=== PATIENT | male | born 1935 | race Caucasian/White ===

== ENCOUNTER → 2022-01-30 14:33 | Outpatient (BNVA) | payer MEDICARE, SELFPAY | PROVIDERS: Family Provider Internal Medicine; PCP Internal Medicine; Visit Provider Family Medicine | DX: Z20.822 Contact with and (suspected) exposure to COVID-19 (principal) | CPT/HCPCS: 87426 ==

== ENCOUNTER 2022-07-25 11:58 | Emergency (ER) | payer MEDICARE, SELFPAY ==
[2022-07-25 11:58] VITALS: BP 100/59; PULSE 62; RESP 16; TEMP 36.4; O2SAT 96; BMI 21.9
--- NOTE | 2022-07-25 11:58 | W.ED.SYNCOPE ---
HPI - Syncope General: Chief Complaint: Syncope Stated Complaint: SYNCOPE Time Seen by Provider: 07/25/22 11:58 History of Present Illness: Mr. John is an 86-year-old gentleman without significant past medical history presenting to the emergency department due to syncopal episode. Reports being at his baseline health the past few days and feeling well this morning. He was sitting in [place] when he describes his vision closing in and syncope. He recalls is waking up on the ground. He currently feels back to baseline. Denies chest pain or shortness of breath. He denies any numbness or tingling or neurologic symptoms. Denies frequent episodes in the past. Intensity symptoms when present was severe. Course has resolved. No other specific changes in health, exacerbating, or alleviating factors identified. Onset (ago): minute(s) Duration of episode: 3 -: minutes(s) Prodromal symptoms: vision changes Witnessed: Yes - by Bystander Context: at rest Injuries sustained associated with event: none Associated symptoms: Reports no associated symptoms Review of Systems General: Reports: 10 or more systems reviewed and unremarkable except in HPI and below PFSH ED PFSH: Medical History GERD (gastroesophageal reflux disease) Lower urinary tract symptoms (LUTS) Thyroid disorder Surgical History No significant past surgical history Physical Exam Const: COMMON NORMALS: patient oriented x3 and alert GENERAL APPEARANCE: cooperative and well developed HENMT: COMMON NORMALS: normocephalic and atraumatic HEAD & SCALP: normocephalic and atraumatic Eye: COMMON NORMALS: conjunctivae normal CONJUNCTIVA: Yes conjunctivae normal SCLERA: sclerae normal Neck/C-Spine: COMMON NORMALS: supple GENERAL: Yes trachea midline Resp: COMMON NORMALS: clear to auscultation bilaterally EFFORT & INSPECTION: Yes able to speak in complete sentences AUSCULTATION: clear to auscultation bilaterally Cardio: COMMON NORMALS: regular rate and regular rhythm RATE: regular rate RHYTHM: regular rhythm GI: COMMON NORMALS: Soft to palpation PALPATION: Yes Soft to palpation and No Tenderness to palpation present (GI) Extremity: GENERAL: Yes normal exam except as noted and No edema Neuro: COMMON NORMALS: patient oriented x3, CN's II-XII intact bilaterally, moves all extremities, no focal motor deficits and no sensory deficits noted SENSORIUM/ORIENTATION: Yes alert and No Orientation impaired Psych: COMMON NORMALS: mental status grossly normal and Normal thought process present THOUGHT PROCESS: Normal thought process present Course Vital Signs: Vital signs: Vital Signs Temperature 97.6 F 07/25/22 11:58 Pulse Rate 67 07/25/22 12:21 Respiratory Rate 14 07/25/22 12:21 Blood Pressure 159/90 07/25/22 13:59 Pulse Oximetry 97 07/25/22 12:21 Oxygen Delivery Me thod 07/25/22 12:21 MDM - Syncope Medical Decision Making 86-year-old gentleman presenting due to a syncopal episode that occurred while at [place]. Patient currently feels back to baseline and there are no focal neurologic deficits. Patient is nontoxic in appearance. Head to toe exam performed. EKG notable for sinus rhythm, left axis deviation, normal intervals, no STEMI. Labs with no significant hematologic abnormalities, metabolic panel with perhaps mild dehydration. Elevated bilirubin of uncertain etiology, patient does not have jaundice and no right upper quadrant tenderness or other abnormalities of liver function. Negative range delta troponin at 2 hours. Elevated TSH with normal free T4. No evidence of urinary tract infection. Chest x-ray negative for acute lobar consolidation or pneumothorax, heart is mildly enlarged. CT head negative for acute pathology. On reassessment patient continues to feel improved without recurrence of symptoms. He is able to ambulate with a steady gait. He was treated during ED management with IV fluids. Most likely etiology of patient symptoms is syncope which may be related to dehydration. The results of ED evaluation were discussed with the patient including potential disposition options. The patient is not low risk by syncope rules and this was discussed with end. He prefers outpatient management which I think is reasonable given age. I will order further outpatient testing. I discussed prescriptions and/or symptomatic cares (if applicable) including appropriate and responsible use, followup plan, and return precautions. The patient verbalized understanding and felt safe for discharge. Medical Records I reviewed the patient's medical records. Lab Data I reviewed the patient's lab results. 07/25/22 12:00 07/25/22 12:00 Radiology Impressions Chest X-Ray 07/25/22 12:14 IMPRESSION: Cardiomegaly with moderate elevation left hemidiaphragm. Head CT 07/25/22 12:14 IMPRESSION: No acute intracranial abnormality. Laboratory Results WBC 7.5 10^3/uL (4.0-10.0) 07/25/22 12:00 RBC 5.12 10^6/uL (4.1-5.3) 07/25/22 12:00 Hgb 15.0 g/dL (11.7-16.6) 07/25/22 12:00 Hct 47.5 % (42.0-52.0) 07/25/22 12:00 MCV 92.8 fl (80-94) 07/25/22 12:00 MCH 29.3 pg (28.0-34.0) 07/25/22 12:00 MCHC 31.6 g/dL (30.0-36.0) 07/25/22 12:00 RDW 12.7 % (12.1-15.1) 07/25/22 12:00 Plt Count 182 10^3/cmm (130-400) 07/25/22 12:00 MPV 11.5 fL (7.4-10.4) H 07/25/22 12:00 Neut % (Auto) 67.5 % 07/25/22 12:00 Lymph % (Auto) 18.0 % 07/25/22 12:00 [place] % (Auto) 10.2 % 07/25/22 12:00 Eos % (Auto) 2.7 % 07/25/22 12:00 Baso % (Auto) 0.9 % 07/25/22 12:00 Neut # (Auto) 5.08 10^3/uL (1.8-7.7) 07/25/22 12:00 Lymph # (Auto) 1.4 10^3/uL (0.8-4.8) 07/25/22 12:00 [place] # (Auto) 0.8 10^3/uL (0.2-0.9) 07/25/22 12:00 Eos # (Auto) 0.2 10^3/uL (0.0-0.8) 07/25/22 12:00 Baso # (Auto) 0.1 10^3/uL (0.0-0.1) 07/25/22 12:00 Nucleated RBC % (auto) 0 % 07/25/22 12:00 Nucleated RBCs # 0.0 /100WBC 07/25/22 12:00 Sodium 134 mmol/L (136-145) L 07/25/22 12:00 Potassium 4.3 mmol/L (3.5-5.1) 07/25/22 12:00 Chloride 100 mmol/L (98-107) 07/25/22 12:00 Carbon Dioxide 25 mmol/L (22-29) 07/25/22 12:00 Anion Gap 13.3 (5-19) 07/25/22 12:00 BUN 20 mg/dL (8-23) 07/25/22 12:00 Creatinine 0.8 mg/dL (0.7-1.2) 07/25/22 12:00 GFR Calculation Not Reportable 07/25/22 12:00 Glucose 105 mg/dL (65-115) 07/25/22 12:00 Calculated Osmolality 281 mOsm/kg (285-295) L 07/25/22 12:00 Calcium 9.0 mg/dL (8.5-10.5) 07/25/22 12:00 Magnesium 2.1 mg/dL (1.7-2.3) 07/25/22 12:00 Total Bilirubin 1.6 mg/dL (0.15-1.2) H 07/25/22 12:00 AST 19 U/L (0-40) 07/25/22 12:00 ALT 12 U/L (0-41) 07/25/22 12:00 Alkaline Phosphatase 66 U/L (40-130) 07/25/22 12:00 Troponin T Baseline 18 ng/L (0-15) H 07/25/22 12:00 Troponin T 120 Minute 12.68 ng/L (0-15) 07/25/22 14:07 Delta Troponin T -5.32 ABS# (0-10) L 07/25/22 14:07 NT-Pro-B Natriuret Pep 395 pg/mL (0-450) 07/25/22 12:00 Total Protein 6.4 g/dL (6.6-8.7) L 07/25/22 12:00 Albumin 4.1 g/dL (3.5-5.2) 07/25/22 12:00 Globulin 2.3 g/dL (1.3-4.6) 07/25/22 12:00 TSH 7.26 uIU/mL (0.27-4.20) H 07/25/22 12:00 Free T4 1.15 ng/dL (0.82-1.77) 07/25/22 12:00 Urine Color Dark yellow (Yellow) 07/25/22 14:56 Urine Appearance Clear (CLEAR) 07/25/22 14:56 Urine pH 6 (5-7) 07/25/22 14:56 Ur Specific [place] 1.020 (1.005-1.030) 07/25/22 14:56 Urine Protein Neg (Negative) 07/25/22 14:56 Urine Glucose (UA) Norm (Normal) 07/25/22 14:56 Urine Ketones 1+ (Negative) H 07/25/22 14:56 Urine Blood Neg (Negative) 07/25/22 14:56 Urine Nitrate Negative (Negative) 07/25/22 14:56 Urine Bilirubin 1+ (Negative) H 07/25/22 14:56 Urine Urobilinogen Norm mg/dL (Negative) 07/25/22 14:56 Ur Leukocyte Esterase Negative (Negative) 07/25/22 14:56 Discharge Plan Discharge Patient Disposition: Home Clinical Impression: Syncope, Dehydration Condition: Stable Prescriptions: No Action furosemide 20 mg tablet 10 mg PO QAM eye drop eye-both Paxlovid (EUA) 150 mg x 2- 100 mg tablet See Rx Instructions PO .COMPLEX Qty: 30 0RF Rx Instructions: take TWO 150 mg tablets of nirmatrelvir with ONE 100 mg tablet of ritonavir twice daily for 5 days PO doxycycline hyclate 100 mg capsule 100 mg PO BID 5 Days Qty: 10 0RF dexamethasone [Decadron] 6 mg tablet 6 mg PO DAILY 5 Days Qty: 5 0RF benzonatate 100 mg capsule 100 mg PO TID PRN (Reason: cough) 7 Days Qty: 21 0RF ascorbate calcium (vitamin C) 500 mg tablet 500 mg PO BID 7 Days Qty: 14 0RF zinc 50 mg tablet 50 mg PO DAILY 7 Days Qty: 7 0RF cholecalciferol (vitamin D3) 25 mcg (1,000 unit) capsule 25 mcg PO DAILY 7 Days Qty: 7 0RF albuterol sulfate 90 mcg/actuation HFA aerosol inhaler 1 inh inhalation QID PRN (Reason: shortness of breath or wheezing) Qty: 8.5 0RF Discharge Orders: Discharge ED (Routine); Ordered 07/25/22 Ordered By: Kashmir Lopez Other Ambulatory Orders: ECG holter monitor 14 Days (Routine) Timeframe: 3 Days Facility: [facility] - Location: Radiology Ordered By: Kahsmir Lopez Referrals: hCinmay Caba, [Primary Care Provider] - Discharge Diet: Usual diet Discharge Activity: Resume usual activity Patient Instructions: Syncope in Older Adults (ED) Activity Restrictions/Additional Instructions: Thank you for visiting the emergency department. You were seen and evaluated for syncope. The exact cause of your syncope is unclear however may be related to mild dehydration. As discussed you do require further testing to evaluate for other causes including potentially serious causes, you are choosing to do this in the outpatient setting. I will message case management for carotid artery ultrasound and echocardiogram. I will also order a Holter monitor. Please follow-up with your primary care provider. Return to the emergency department for recurrent symptoms, any neurologic symptoms, chest pain, shortness of breath, or anything else that you are concerned about and feel needs emergency department evaluation. Coding Level of Care Code ED Fabrication And Layout Craftsman for Yohana Fwd Exam Comprehensive
--- NOTE | 2022-07-25 12:14 | CTR_ITS ---
PROCEDURE INFORMATION: Exam: CT Head Without Contrast Exam date and time: 07/25/2022 1:09 PM Age: 86 years old Clinical indication: Syncope and collapse TECHNIQUE: Imaging protocol: Computed tomography of the head without contrast. Radiation optimization: All CT scans at this facility use at least one of these dose optimization techniques: automated exposure control; mA and/or kV adjustment per patient size (includes targeted exams where dose is matched to clinical indication); or iterative reconstruction. Other protocol: This patient has received 0 known CTs and 0 known cardiac nuclear medicine studies in the 12 months prior to the current study. COMPARISON: No relevant prior studies available. RADIATION DOSE METRICS: Total DLP (mGy-cm): 1184.38 FINDINGS: Brain: No intracranial hemorrhage. No mass effect, edema or midline shift. Cortical sulci are unremarkable for age. There are vague areas of decreased attenuation within the periventricular white matter likely secondary to chronic microvascular changes. Mild age related cerebral volume loss. Vascular calcifications are noted both carotid siphons and distal portion right vertebral artery. Cerebral ventricles: Unremarkable for age. Paranasal sinuses: Visualized sinuses are unremarkable. No fluid levels. Mastoid air cells: Visualized mastoid air cells are well aerated. Bones/joints: Unremarkable. No acute fracture. Soft tissues: Unremarkable. CT/CT head wo con* [id number] IMPRESSION: No acute intracranial abnormality.
--- NOTE | 2022-07-25 12:14 | XRR_ITS ---
PROCEDURE INFORMATION: Exam: XR Chest Exam date and time: 07/25/2022 12:27 PM Age: 86 years old Clinical indication: Other: Syncope TECHNIQUE: Imaging protocol: Radiologic exam of the chest. Views: 1 view. COMPARISON: No relevant prior studies available. FINDINGS: Lungs: There are minor platelike atelectatic changes at both lung bases otherwise lung small are clear. Pleural spaces: Unremarkable. No pleural effusion. No pneumothorax. Heart/Mediastinum: Cardiac silhouette is enlarged. Diaphragm: There is moderate elevation left hemidiaphragm that may be longstanding. Bones/joints: Unremarkable for age. XR/XR chest 1V portable [id number] IMPRESSION: Cardiomegaly with moderate elevation left hemidiaphragm.
[2022-07-25 12:21] VITALS: BP 92/63; PULSE 67; RESP 14; O2SAT 97
[2022-07-25 12:22] LABS: Basophils # 0.1 10^3/uL (0.0-0.1); Basophils % 0.9 %; Eosinophils # 0.2 10^3/uL (0.0-0.8); Eosinophils % 2.7 %; Hematocrit 47.5 % (42.0-52.0); Lymphocytes # 1.4 10^3/uL (0.8-4.8); Mean Corpuscular HGB Conc 31.6 g/dL (30.0-36.0); Mean Corpuscular Hemoglobin 29.3 pg (28.0-34.0); Mean Corpuscular Volume 92.8 fl (80-94); Mean Platelet Volume 11.5 fL (7.4-10.4); Monocytes # 0.8 10^3/uL (0.2-0.9); Monocytes % 10.2 %; Neutrophils # 5.08 10^3/uL (1.8-7.7); Neutrophils % 67.5 %; Nucleated Red Blood Cells % 0 %; Platelet Count 182 10^3/cmm (130-400); Red Blood Count 5.12 10^6/uL (4.1-5.3); Red Cell Distribution Width 12.7 % (12.1-15.1); White Blood Count 7.5 10^3/uL (4.0-10.0)
[2022-07-25 12:49] LABS: Troponin(5th) Baseline 18 ng/L (0-15)
[2022-07-25 12:58] LABS: Alanine Aminotransferase 12 U/L (0-41); Albumin Level 4.1 g/dL (3.5-5.2); Alkaline Phosphatase 66 U/L (40-130); Anion Gap 13.3 (5-19); Aspartate Amino Transferase 19 U/L (0-40); Blood Urea Nitrogen 20 mg/dL (8-23); Carbon Dioxide 25 mmol/L (22-29); Chloride 100 mmol/L (98-107); Globulin 2.3 g/dL (1.3-4.6); Glucose 105 mg/dL (65-115); Magnesium 2.1 mg/dL (1.7-2.3); NT Pro B Type Natriuretic Pept 395 pg/mL (0-450); Osmolality Calculated 281 mOsm/kg (285-295); Potassium 4.3 mmol/L (3.5-5.1); Sodium 134 mmol/L (136-145); Thyroid Stimulating Hormone 7.26 uIU/mL (0.27-4.20); Total Bilirubin 1.6 mg/dL (0.15-1.2); Total Protein 6.4 g/dL (6.6-8.7)
[2022-07-25] MEDS: sodium chloride 0.9% 1,000 ML 999 ML IV (13:24)
--- NOTE | 2022-07-25 13:25 | ECG_ITS ---
[facility] Test Date: 2022-07-25 Pat Name: Doroteo John Department: Room: Gender: Male Pageant Director: : 1935 Requested By: Kashmir Lopez Order Number: [id number] Pernell MD: Tristen Moses M.D. Measurements Intervals [place] Rate: 76 P: 83 IN: 166 QRS: -58 QRSD: 103 T: 61 QT: 371 QTc: 418 Interpretive Statements SINUS RHYTHM PATTERN CONSISTENT WITH PULMONARY DISEASE LEFT ANTERIOR FASCICULAR BLOCK [QRS AXIS <= -45, QR IN I, RS IN II] No previous ECG available for comparison Electronically Signed On 07-25-2022 21:41:19 MANDREL PRESS HAND by Tristen Moses M.D. [id number]
[2022-07-25 13:59] VITALS: BP 123/75; BP 142/72; BP 159/90
[2022-07-25 14:50] LABS: Troponin 5 2HR 12.68 ng/L (0-15)
[2022-07-25 14:51] LABS: Free T4 Free Thyroxine 1.15 ng/dL (0.82-1.77)
--- NOTE | 2022-07-25 15:25 | ECG_ITS ---
[facility] Test Date: 2022-07-25 Pat Name: Doroteo John Department: Room: Gender: Male A&P Technician: : 1935 Requested By: Kashmir Lopez Order Number: [id number] Pernell MD: Tristen Moses M.D. Measurements Intervals [place] Rate: 83 P: 74 NV: 174 QRS: -72 QRSD: 104 T: 74 QT: 352 QTc: 416 Interpretive Statements SINUS RHYTHM WITH OCCASIONAL SUPRAVENTRICULAR PREMATURE COMPLEXES PATTERN CONSISTENT WITH PULMONARY DISEASE LEFT ANTERIOR FASCICULAR BLOCK [QRS AXIS <= -45, QR IN I, RS IN II] Compared to ECG 07/25/2022 13:25:13 No significant changes Electronically Signed On 07-25-2022 21:43:10 CHILDCARE TEACHER by Tristen Moses M.D. [id number]
[2022-07-25 15:33] LABS: Troponin 5 2HR Delta -5.32 ABS# (0-10)
[2022-07-25 15:38] LABS: Add Urine Microscopic? NO; Charge for UA Resulting for Rev
[2022-07-25 16:09] LABS: Bilirubin Urine 1+ (Negative); Blood Urine Neg (Negative); Glucose Urine UA Norm (Normal); Ketones Urine 1+ (Negative); Leukocyte Esterase Urine Negative (Negative); Nitrate Urine Negative (Negative); Protein Urine Neg (Negative); Urine Appearance Clear (CLEAR); Urine Color Dark Yellow (Yellow); Urobilinogen Urine Norm (Negative); pH Urine 6 (5-7)
--- NOTE | 2022-07-26 12:12 | DCPLANNER ---
Addendum entered by Zabrina Morales 09/08/22 15:48: these tests were cancelled Addendum entered by Zabrina Morales 07/26/22 12:14: manager pacu also sent patients primary care physician notification that these tests were ordered from the ER. Original Note: manager pacu had message to schedule an outpatient ultrasound and echo cardiogram for patient. manager pacu sent signed order to centralized scheduling, who will call patient with appointment information.
== END 2022-07-25 15:46 | disposition home or self-care (01) ==
PROVIDERS: Emergency Provider Emergency Medicine; PCP Internal Medicine
DX: R55 Syncope and collapse (principal); E86.0 Dehydration
CPT/HCPCS: 36415; 70450; 71045; 80053; 81003; 83735; 83880; 84439; 84443; 84484; 85025; 93005; 96360; 99285; J7030

== ENCOUNTER 2023-10-05 20:36 | Observation (INO) | payer MEDICARE, SELFPAY ==
[2023-10-05 20:38] VITALS: BP 96/60; PULSE 92; RESP 18; TEMP 37; O2SAT 92; BMI 21.5
--- NOTE | 2023-10-05 20:40 | XRR_ITS ---
PROCEDURE INFORMATION: Exam: XR Chest Exam date and time: 10/05/2023 8:49 PM Age: 87 years old Clinical indication: Other: Syncope TECHNIQUE: Imaging protocol: Radiologic exam of the chest. Views: 1 view. COMPARISON: CR XR chest 1V portable [id number] 07/25/2022 12:27 PM FINDINGS: Lungs: Similar elevated left hemidiaphragm, with associated minimal left basilar likely compressive atelectasis. Remaining lung small are clear. Pleural spaces: Unremarkable. No pleural effusion. No pneumothorax. Heart/Mediastinum: Heart size upper limits normal Bones/joints: No suspicious osseous findings. Diffuse osteopenia. XR/XR chest 1V portable [id number] IMPRESSION: Minimal left basilar lung likely atelectasis.
--- NOTE | 2023-10-05 20:41 | ECG_ITS ---
[facility] Test Date: 2023-10-05 Pat Name: Doroteo John Department: Room: Gender: Male Building Code Inspector: : 1935 Requested By: Cathy Sellers Order Number: [id number] Pernell MD: Tristen Moses M.D. Measurements Intervals [place] Rate: 93 P: 55 GA: 152 QRS: -70 QRSD: 103 T: 64 QT: 347 QTc: 434 Interpretive Statements SINUS RHYTHM WITH FREQUENT SUPRAVENTRICULAR PREMATURE COMPLEXES PATTERN CONSISTENT WITH PULMONARY DISEASE LEFT ANTERIOR FASCICULAR BLOCK [QRS AXIS <= -45, QR IN I, RS IN II] Compared to ECG 07/25/2022 15:25:06 No significant changes Electronically Signed On 10-07-2023 17:04:02 CDT by Tristen Moses M.D. [id number]
--- NOTE | 2023-10-05 20:45 | CTR_ITS ---
PROCEDURE INFORMATION: Exam: CT Head Without Contrast Exam date and time: 10/05/2023 8:55 PM Age: 87 years old Clinical indication: Syncope and collapse TECHNIQUE: Imaging protocol: Computed tomography of the head without contrast. Radiation optimization: All CT scans at this facility use at least one of these dose optimization techniques: automated exposure control; mA and/or kV adjustment per patient size (includes targeted exams where dose is matched to clinical indication); or iterative reconstruction. COMPARISON: CT head wo con* [id number] 07/25/2022 1:09 PM RADIATION DOSE METRICS: Total DLP (mGy-cm): 1139.92 FINDINGS: Brain: There are moderate periventricular and subcortical lucencies consistent with chronic microvascular ischemic changes.The barrera-white differentiation is maintained. No hemorrhage. No edema. Cerebral ventricles: No ventriculomegaly. Paranasal sinuses: Visualized sinuses are unremarkable. No fluid levels. Mastoid air cells: Visualized mastoid air cells are well aerated. Orbital cavities: Bilateral cataract surgery. Bones/joints: Unremarkable. No acute fracture. Soft tissues: Unremarkable. Vasculature: Vascular calcifications. CT/CT head wo con* [id number] IMPRESSION: No acute intracranial abnormality. Chronic microvascular ischemic changes.
[2023-10-05 20:48] LABS: Basophils # 0.1 10^3/uL (0.0-0.1); Basophils % 0.4 %; Eosinophils % 0.2 %; Lymphocytes # 1.2 10^3/uL (0.8-4.8); Lymphocytes % 9.3 %; Mean Corpuscular Hemoglobin 30.3 pg (27-33); Mean Platelet Volume 11.1 fL (7.4-10.4); Monocytes # 1.4 10^3/uL (0.2-0.9); Neutrophils # 9.79 10^3/uL (1.8-7.7); Neutrophils % 78.1 %; Nucleated Red Blood Cells % 0 %; Platelet Count 273 10^3/cmm (157-399); Red Blood Count 5.11 10^6/uL (3.85-5.65); Red Cell Distribution Width 12.7 % (12.1-15.1); White Blood Count 12.54 10^3/uL (3.29-11.43)
--- NOTE | 2023-10-05 20:54 | W.ED.SYNCOPE ---
HPI - Syncope General: Chief Complaint: Syncope Stated Complaint: syncope Time Seen by Provider: 10/05/23 20:38 Source: patient and EMS Mode of arrival: EMS Limitations: no limitations History of Present Illness: 87-year-old male is here with EMS he had a syncopal event at home per EMS family states that he syncopized while having dinner was out for 10 to 20 minutes he had some slight hypotension with them. Does complain of right shoulder pain that is been going on for days. He is very hard of hearing. Denies any headache or chest pain. Denies any shortness of breath. Associated symptoms: Deny abdominal pain, chest pain, fever(s), headache(s) or nausea Review of Systems Const: Denies: fever(s), chills, body aches or change in appetite ENMT: Denies: throat pain or dental pain Card: Reports: syncope; Denies: chest pain Resp: Denies: dyspnea GI: Denies: abdominal pain, nausea, vomiting or diarrhea Musc: Denies: neck pain or back pain Skin/Breast: Denies: rash Neuro: Denies: headache(s) PFSH ED PFSH: Medical History (Updated 10/05/23 @ 22:24 by Ron Mera MD) Right shoulder pain Hard of hearing Pneumonia due to COVID-19 virus Tobacco use disorder, severe, in sustained remission Thyroid disorder Lower urinary tract symptoms (LUTS) GERD (gastroesophageal reflux disease) Surgical History History of vasectomy History of appendectomy No significant past surgical history Family History Father Multiple sclerosis Social History Smoking and tobacco/nicotine status: former use of tobacco/nicotine Quit status (tobacco/nicotine): has quit using Alcohol intake: never Substance/Drug Use: never Physical Exam Const: COMMON NORMALS: patient oriented x3 and healthy appearing HENMT: COMMON NORMALS: normocephalic and atraumatic HEAD & SCALP: normocephalic and atraumatic Eye: COMMON NORMALS: Equal, round and reactive pupils present and EOMs intact bilaterally PUPIL: Yes Equal, round and reactive pupils present Neck/C-Spine: COMMON NORMALS: full ROM and supple Chest: COMMONS NORMALS: normal inspection of the chest and normal palpation of entire chest wall Resp: COMMON NORMALS: normal respiratory effort, No retractions, No use of accessory muscles and clear to auscultation bilaterally AUSCULTATION: clear to auscultation bilaterally Cardio: COMMON NORMALS: regular rate, regular rhythm and No murmurs present (Cardio) RATE: regular rate RHYTHM: regular rhythm GI: COMMON NORMALS: Normal to inspection, nondistended, normoactive bowel sounds present, Soft to palpation, non-tender and no masses PALPATION: Yes Soft to palpation Extremity: COMMON NORMALS: normal to inspection and full ROM Neuro: COMMON NORMALS: patient oriented x3, moves all extremities and no focal motor deficits Psych: COMMON NORMALS: mental status grossly normal, Normal thought process present and cooperative THOUGHT PROCESS: Normal thought process present Skin: COMMON NORMALS: no rashes or lesions noted and no wounds GENERAL SKIN EXAM: no rashes or lesions noted Course Vital Signs: Vital signs: Vital Signs Temperature 97.5 F L 10/06/23 07:28 Pulse Rate 91 10/06/23 09:00 Respiratory Rate 15 10/06/23 07:28 Blood Pressure 137/82 10/06/23 07:28 Pulse Oximetry 93 10/06/23 09:00 Oxygen Delivery Me thod Room Air 10/06/23 09:00 Oxygen Flow Rate 2 10/05/23 22:18 MDM - Syncope Medical Decision Making Patient presents here after a syncopal event had some hypotension blood pressures improved after IV fluids spoke to the hospitalist will admit for observation. Medical Records I reviewed the patient's medical records. Lab Data I reviewed the patient's lab results. 10/06/23 02:23 10/06/23 02:23 Radiology Impressions Chest X-Ray 10/05/23 20:40 IMPRESSION: Minimal left basilar lung likely atelectasis. Head CT 10/05/23 20:45 IMPRESSION: No acute intracranial abnormality. Chronic microvascular ischemic changes. Chest CTA 10/05/23 21:18 IMPRESSION: 1. No evidence of PE or acute aortic abnormality. 2. Mild aneurysmal dilatation of the descending thoracic aorta. Laboratory Results WBC 12.54 10^3/uL (3.29-11.43) H 10/05/23 20:25 RBC 5.11 10^6/uL (3.85-5.65) 10/05/23 20: Hgb 15.50 g/dL (11.27-16.99) 10/05/23: Hct 47.0 % (37-53) 10/05/23: MCV 92.0 fl (82-101) 10/05/23: MCH 30.3 pg (27-33) 10/05/23: MCHC 33.0 g/dL (30-55) 10/05/23: RDW 12.7 % (12.1-15.1) 10/05/23: Plt Count 273 10^3/cmm (157-399) 10/05/23: MPV 11.1 fL (7.4-10.4) H 10/05/23: Neut % (Auto) 78.1 % 10/05/23: Lymph % (Auto) 9.3 % 10/05/23: [place] % (Auto) 11.0 % 10/05/23: Eos % (Auto) 0.2 % 10/05/23: Baso % (Auto) 0.4 % 10/05/23: Neut # (Auto) 9.79 10^3/uL (1.8-7.7) H 10/05/23: Lymph # (Auto) 1.2 10^3/uL (0.8-4.8) 10/05/23: [place] # (Auto) 1.4 10^3/uL (0.2-0.9) H 10/05/23: Eos # (Auto) 0.0 10^3/uL (0.0-0.8) 10/05/23: Baso # (Auto) 0.1 10^3/uL (0.0-0.1) 10/05/23 Nucleated RBC % (auto) 0 % 10/05/23 Nucleated RBCs # 0.0 /100WBC 10/05/23: D-Dimer 1.38 ug/mLFEU (0-0.59) H 10/05/23: Sodium 138 mmol/L (136-145) 04/10/24 20:25 Potassium 4.3 mmol/L (3.5-5.1) 10/05/23 20:25 Chloride 101 mmol/L (98-107) 10/05/23 20:25 Carbon Dioxide 23 mmol/L (22-29) 10/05/23 20:25 Anion Gap 18.3 (5-19) 10/05/23 20:25 BUN 23 mg/dL (8-23) 10/05/23 20:25 Creatinine 1.0 mg/dL (0.7-1.2) 10/05/23 20:25 GFR Calculation Not Reportable 10/05/23 20:25 Glucose 133 mg/dL (65-115) H 10/05/23 20:25 Calculated Osmolality 292 mOsm/kg (285-295) 10/05/23 20:25 Calcium 9.3 mg/dL (8.5-10.5) 10/05/23 20:25 Magnesium 1.8 mg/dL (1.7-2.3) 10/05/23 20:25 Total Bilirubin 1.6 mg/dL (0.15-1.2) H 10/05/23 20:25 AST 26 U/L (0-40) 10/05/23 20:25 ALT 19 U/L (0-41) 10/05/23 20:25 Alkaline Phosphatase 84 U/L (40-130) 10/05/23 20:25 Troponin T Baseline 25 ng/L (0-15) H 10/05/23 20:25 Total Protein 6.4 g/dL (6.6-8.7) L 10/05/23 20:25 Albumin 4.1 g/dL (3.5-5.2) 10/05/23 20:25 Globulin 2.3 g/dL (1.3-4.6) 10/05/23 20:25 TSH 5.16 uIU/mL (0.27-4.20) H 10/05/23 20:25 All radiology interpretation(s) finalized by discharge EKG Data EKG 1: I personally reviewed and interpreted this EKG as follows: EKG interpretation date: 10/05/23 EKG interpretation time: 20:46 Interpretation: nsr hr [address] or t wave abnormalities qrs 103 qtc 398 Discharge Plan Discharge Patient Disposition: Admitted As Inpatient Admit Provider: oRn Mera Clinical Impression: Syncope Condition: Stable Coding Level of Care Code ED Parachute Panel Joiner for Yohana Raza
[2023-10-05 21:06] LABS: Troponin(5th) Baseline 25 ng/L (0-15)
[2023-10-05 21:12] LABS: D Dimer 1.38 ug/mLFEU (0-0.59)
[2023-10-05 21:17] LABS: Alanine Aminotransferase 19 U/L (0-41); Albumin Level 4.1 g/dL (3.5-5.2); Alkaline Phosphatase 84 U/L (40-130); Anion Gap 18.3 (5-19); Aspartate Amino Transferase 26 U/L (0-40); Blood Urea Nitrogen 23 mg/dL (8-23); Calcium 9.3 mg/dL (8.5-10.5); Carbon Dioxide 23 mmol/L (22-29); Chloride 101 mmol/L (98-107); Globulin 2.3 g/dL (1.3-4.6); Glucose 133 mg/dL (65-115); Magnesium 1.8 mg/dL (1.7-2.3); Osmolality Calculated 292 mOsm/kg (285-295); Potassium 4.3 mmol/L (3.5-5.1); Sodium 138 mmol/L (136-145); Thyroid Stimulating Hormone 5.16 uIU/mL (0.27-4.20); Total Bilirubin 1.6 mg/dL (0.15-1.2); Total Protein 6.4 g/dL (6.6-8.7)
--- NOTE | 2023-10-05 21:18 | CTR_ITS ---
PROCEDURE INFORMATION: Exam: CTA Chest With Contrast Exam date and time: 10/05/2023 9:30 PM Age: 87 years old Clinical indication: Shortness of breath and other: Elevated ddimer; Additional info: Syncope TECHNIQUE: Imaging protocol: Computed tomographic angiography of the chest with contrast. Exam focused on the arteries. 3D rendering (Not supervised by radiologist): MIP and/or 3D reconstructed images were created by the technologist. Radiation optimization: All CT scans at this facility use at least one of these dose optimization techniques: automated exposure control; mA and/or kV adjustment per patient size (includes targeted exams where dose is matched to clinical indication); or iterative reconstruction. Contrast material: OMNI 350; Contrast volume: 75 ml; Contrast route: INTRAVENOUS (IV); COMPARISON: CR XR chest 1V portable [id number] 10/05/2023 8:49 PM RADIATION DOSE METRICS: Total DLP (mGy-cm): 339.22 FINDINGS: Pulmonary arteries: No evidence of pulmonary thromboembolism. Aorta: Moderate atherosclerosis without evidence of dissection of the thoracic aorta. Mild aneurysmal dilatation of the descending thoracic aorta to approximately 3.1 cm. Thyroid: Grossly unremarkable. Lungs: There is elevation of the left hemidiaphragm with subsegmental atelectasis of the lingula and left lower lobe. Pleural spaces: No evidence of pleural effusion. No pneumothorax. Heart: Mild cardiomegaly. No pericardial effusion. Mediastinal space: No evidence of mediastinal mass, fluid collection or hematoma. Lymph nodes: No mediastinal or hilar adenopathy. Bones/joints: No evidence of acute fracture or aggressive osseous lesion. Soft tissues: No evidence of fluid collection or hematoma in the superficial soft tissues. Other findings: No evidence of acute abnormality in the upper abdomen. CT/CT angio chest PE protcl [id number] IMPRESSION: 1. No evidence of PE or acute aortic abnormality. 2. Mild aneurysmal dilatation of the descending thoracic aorta.
[2023-10-05] MEDS: ketorolac 30 mg/mL INJ 15 MG IVP (21:25)
[2023-10-05] MEDS: iohexol 350 mg/mL 500 mL Btl (per mL) IV (21:38)
[2023-10-05] MEDS: sodium chloride 0.9% 1,000 ML 999 ML IV (21:38)
[2023-10-05 21:40] VITALS: BP 117/69; PULSE 87; RESP 22; O2SAT 99
--- NOTE | 2023-10-05 22:04 | P.HP_ITS ---
Providers/Chief Complaint 2 Admitting Physician: Ron Mera MD Primary Care Provider: Chinmay Caba DO Chief Complaint: syncope History of Present Illness Doroteo John is a 87 year old male with past medical history significant for thyroid disease, lower urinary tract symptoms, and GERD who presents emergency department with syncope. Patient was reportedly out with family eating when he passed out. Patient denies any preceding symptoms. Denies preceding chest pain or shortness of breath. He denies any prior history of syncope. Endorses right shoulder pain has been going on for several days. Thinks he may have a pinched nerve. He was given Toradol in the emergency department which she states improved the pain. Movement worsens the pain. Further collateral collected from ED provider as patient is extremely hard of hearing. He was reportedly out for about 15 to 20 minutes. Family shook him. EMS was called. He was found to have soft blood pressures at that time. He was also found to have had a bowel movement. In the emergency department, blood pressure was initially soft with 96/60. He was treated with IV fluid bolus. Blood pressure improved to 117/69. He currently denies any active symptoms. Review of Systems 2 Narrative: A complete review of systems was obtained and is negative except as stated in HPI. Medications/Allergies Home Medications Medication Instructions Recorded Confirmed Last Taken Type albuterol sulfate 90 mcg/actuation 1 inh inhalation QID PRN shortness 01/30/22 01/30/22 Unknown Rx aerosol inhaler of breath or wheezing #8.5 grams ascorbate calcium (vitamin C) 500 500 mg PO BID 7 days #14 tabs 01/30/22 01/30/22 Unknown Rx mg tablet benzonatate 100 mg capsule 100 mg PO TID PRN cough 7 days #21 01/30/22 01/30/22 Unknown Rx caps cholecalciferol (vitamin D3) 25 25 mcg PO DAILY 7 days #7 caps 01/30/22 01/30/22 Unknown Rx mcg (1,000 unit) capsule dexamethasone 6 mg tablet 6 mg PO DAILY 5 days #5 tabs 01/30/22 01/30/22 Unknown Rx (Decadron) doxycycline hyclate 100 mg capsule 100 mg PO BID 5 days #10 caps 01/30/22 01/30/22 Unknown Rx eye drop eye-both 01/30/22 01/30/22 Unknown History furosemide 20 mg tablet 10 mg PO QAM 01/30/22 01/30/22 Unknown History nirmatrelvir 300 mg (150 mg See Rx Instructions PO .COMPLEX 01/30/22 01/30/22 Unknown Rx x2)-ritonavir 100 mg tablet,dose #30 tabs pack (Paxlovid) zinc 50 mg tablet 50 mg PO DAILY 7 days #7 tabs 01/30/22 01/30/22 Unknown Rx Allergies Allergy/AdvReac Type Severity Reaction Status Date / Time codeine Allergy Intermediate ADR-Confusi Verified 10/05/23 20:44 on PFSH Acute 2 PFSH: Medical History (Updated 10/05/23 @ 22:24 by Ron Mera MD) Right shoulder pain Hard of hearing Pneumonia due to COVID-19 virus Tobacco use disorder, severe, in sustained remission Thyroid disorder Lower urinary tract symptoms (LUTS) GERD (gastroesophageal reflux disease) Surgical History History of vasectomy History of appendectomy No significant past surgical history Family History Father Multiple sclerosis Social History Smoking and tobacco/nicotine status: former use of tobacco/nicotine Quit status (tobacco/nicotine): has quit using Alcohol intake: never Substance/Drug Use: never Vitals/I&O/Wt Last Vital Signs Temp 98.6 F 10/05/23 20:38 Pulse 87 10/05/23 21:40 Resp 22 H 10/05/23 21:40 BP 117/69 10/05/23 21:40 Pulse Ox 99 10/05/23 21:40 O2 Del Method Nasal Cannula 10/05/23 21:40 O2 Flow Rate 2 10/05/23 21:40 Weight last 48 hrs Weight 68.039 kg Physical Exam 2 Narrative: General: Patient is awake. Very hard of hearing. Uses writing board to communicate. Head: Normocephalic. Atraumatic. EOM intact. Hard of hearing as above. Mucous membranes are dry. Neck: No JVD. Cardiovascular: RRR. No gallops. No murmurs. No peripheral edema. Lungs: Clear to auscultation, no use of accessory muscles, no crackles or wheezes. Skin: No jaundice. No rashes. Abdomen: Normal bowel sounds, abdomen soft and nontender. Genito Urinary: Genital exam not performed since complaints not related. Rectal: Rectal exam not performed since no symptoms indicated blood loss. Extremities: No cyanosis or clubbing. Musculoskeletal: No swollen or erythematous joints. Neurological: Moves all 4 extremities. No myoclonus. Data 10/05/23 20:25 10/05/23 20:25 A&P Assessment and plan (1) Syncope: Broad differential, query vasovagal, arrhythmia, versus orthostasis given soft blood pressure and bowel movement Due to patient's advanced age and prolonged syncope, admit to observation Continuous cardiopulmonary monitoring Status post IV fluid bolus in ED PE considered due to elevated D-dimer but ruled out CT-PE Up with assistance Monitor electrolytes IV fluid hydration Qualifiers: Syncope type: unspecified Qualified Code(s): R55 - Syncope and collapse (2) Leukocytosis: WBC 12.54 May be stress-induced versus infection No evidence on CT imaging of chest Urinalysis is pending (3) Hard of hearing: Patient verbalized answers, he cannot hear He is writing board for communication (4) Myocardial injury: Denies chest pain Serial troponin (5) Thyroid disorder: TSH 5.16 (6) Lower urinary tract symptoms (LUTS): Start home meds after med list is updated (7) GERD (gastroesophageal reflux disease): Start home meds after med list is updated (8) Right shoulder pain: Symptoms for several days Analgesics as needed Plan DVT ppx: Lovenox Attestations 2 Medical Necessity Statement*: Pt presents with prolonged syncope with broad differential reports patient presents observation for continuous pulse oximetry monitoring IV fluids, and supportive care. Coding Level of Care Code Acute Code for [facility] Fwd Diagnoses Syncope R55 Syncope type: unspecified Leukocytosis D72.829 Hard of hearing H91.90 Myocardial injury I5A Thyroid disorder E07.9 Lower urinary tract symptoms (LUTS) R39.9 GERD (gastroesophageal reflux disease) K21.9 Right shoulder pain M25.511
[2023-10-05] MEDS: enoxaparin 40 mg/0.4 mL Syringe SUBCUT (22:15)
[2023-10-05 22:18] VITALS: BP 133/79; PULSE 85; RESP 20; O2SAT 97
[2023-10-05 22:30] LABS: Troponin 5 2HR 18.86 ng/L (0-15)
[2023-10-05 22:37] LABS: Troponin 5 2HR Delta -6.14 ABS# (0-10)
--- NOTE | 2023-10-05 22:41 | ECG_ITS ---
[facility] Test Date: 2023-10-05 Pat Name: Doroteo John Department: Room: 255 Gender: Male Business Intelligence Analyst: : 1935 Requested By: Cathy Sellers Order Number: [id number] Pernell MD: Tristen Moses M.D. Measurements Intervals [place] Rate: 81 P: 63 [place]: 166 QRS: -50 QRSD: 104 T: 24 QT: 355 QTc: 412 Interpretive Statements SINUS RHYTHM LEFT ANTERIOR FASCICULAR BLOCK [QRS AXIS <= -45, QR IN I, RS IN II] Compared to ECG 10/05/2023 20:46:27 No significant changes Electronically Signed On 10-07-2023 17:13:36 CDT by Tristen Moses M.D. [email or web address]
[2023-10-05 22:43] VITALS: BMI 22.8
[2023-10-05 22:51] VITALS: BP 102/66; PULSE 92; RESP 18; TEMP 37.2; O2SAT 90
[2023-10-05 23:34] VITALS: PULSE 80
[2023-10-06] VITALS (9 sets, daily range): BP systolic 102–147; BP diastolic 66–84; PULSE 68–92; RESP 14–97; TEMP 36.4–37.2; O2SAT 90–98
[2023-10-06 01:46] LABS: Add Urine Microscopic? YES; Bilirubin Urine Neg (Negative); Blood Urine Trace (Negative); Glucose Urine UA Norm (Normal); Ketones Urine Negative (Negative); Leukocyte Esterase Urine Negative (Negative); Nitrate Urine Negative (Negative); Protein Urine Trace (Negative); Specific Gravity, Urine 1.005 (1.005-1.030); Urine Appearance Clear (CLEAR); Urine Color Yellow (Yellow); Urobilinogen Urine 4 mg/dL (Negative); pH Urine 7 (5-7)
[2023-10-06 01:47] LABS: Add Urine Culture? No; Amorphous Sediment Urine 1+ /hpf; Bacteria Urine TRACE /hpf; Mucus Urine 1+ /hpf; RBC Urine 0-4 /hpf (0-2)
[2023-10-06 02:38] LABS: Basophils % 0.3 %; Eosinophils % 0.1 %; Lymphocytes # 0.6 10^3/uL (0.8-4.8); Lymphocytes % 5.4 %; Mean Corpuscular HGB Conc 32.3 g/dL (30-55); Mean Corpuscular Hemoglobin 30.6 pg (27-33); Mean Corpuscular Volume 94.7 fl (82-101); Mean Platelet Volume 10.8 fL (7.4-10.4); Monocytes # 1.1 10^3/uL (0.2-0.9); Monocytes % 10.3 %; Neutrophils # 9.19 10^3/uL (1.8-7.7); Neutrophils % 82.9 %; Nucleated Red Blood Cells % 0 %; Platelet Count 196 10^3/cmm (157-399); Red Blood Count 4.54 10^6/uL (3.85-5.65); Red Cell Distribution Width 12.8 % (12.1-15.1); White Blood Count 11.08 10^3/uL (3.29-11.43)
--- NOTE | 2023-10-06 02:38 | ECG_ITS ---
[facility] Test Date: 2023-10-06 Pat Name: Doroteo John Department: Room: 255 Gender: Male Senior Reservations Agent: : 1935 Requested By: Cathy Sellers Order Number: [id number] Reading MD: Tristen Moses M.D. Measurements Intervals [place] Rate: 77 P: 56 [place]: 156 QRS: -48 QRSD: 102 T: 38 QT: 365 QTc: 415 Interpretive Statements SINUS RHYTHM WITH FREQUENT SUPRAVENTRICULAR PREMATURE COMPLEXES LEFT AXIS DEVIATION [QRS AXIS < -30] Compared to ECG 10/05/2023 23:53:43 Left-axis deviation now present Left anterior fascicular block no longer present Electronically Signed On 10-07-2023 17:13:34 CDT by Tristen Moses M.D. [id number]
[2023-10-06 03:01] LABS: Troponin 5 6HR 23.26 ng/L (0-15)
[2023-10-06 03:02] LABS: Anion Gap 13.2 (5-19); Blood Urea Nitrogen 22 mg/dL (8-23); Calcium 8.2 mg/dL (8.5-10.5); Carbon Dioxide 26 mmol/L (22-29); Chloride 104 mmol/L (98-107); Creatinine Clr Calc Pharmacy 58.2837; Glucose 115 mg/dL (65-115); Magnesium 1.8 mg/dL (1.7-2.3); Osmolality Calculated 292 mOsm/kg (285-295); Phosphorus 3.8 mg/dL (2.5-4.5); Potassium 4.2 mmol/L (3.5-5.1); Sodium 139 mmol/L (136-145)
[2023-10-06 03:09] LABS: Troponin 5 6HR Delta -1.74 ng/L (0-12)
--- NOTE | 2023-10-06 08:10 | PC.PHAR ---
PT UNABLE TO VERIFY MEDICATIONS- ATTEMPTING TO CONTACT PTS CONTACTS TO VERIFY- UNABLE TO TALK TO ANYONE AT THIS TIME 8:11 AM WILL CALL AGAIN LATER
--- NOTE | 2023-10-06 17:09 | PM.DCS ---
Discharge Providers Date of Admission: 10/05/23 21:54 Date of Discharge: October 06, 2023 Attending Provider at Admission: Ron Mera MD Attending Provider at Discharge: Venessa Stern MD Primary Care Provider: Chinmay Caba DO Diagnoses at Discharge Discharge Diagnosis (1) Syncope: Status: Acute Qualifiers: Syncope type: unspecified Qualified Code(s): R55 - Syncope and collapse (2) Leukocytosis: Status: Acute (3) Hard of hearing: Status: Acute (4) Myocardial injury: Status: Acute (5) Thyroid disorder: Status: Acute (6) Lower urinary tract symptoms (LUTS): Status: Acute (7) GERD (gastroesophageal reflux disease): Status: Acute (8) Right shoulder pain: Status: Acute Reason for Visit Reason for Visit: syncope Hospital Course Hospital Course In summary, Mr.Randall Pita John is a 87-year-old man with past medical history of thyroid disease, GERD who presented for further evaluation of syncope. Patient was reported to have had a syncopal episode while eating. No preceding symptoms reported. In the ER, patient's blood pressure was on the lower side and received IV fluids with some improvement in his blood pressures. Etiology of syncope was not very clear. Possibly vasovagal versus orthostasis in the setting of patient's low blood pressure on arrival to the hospital. He did not have any evidence of arrhythmia. Chest CT was negative for pulm embolism. CT head was negative for any acute process. He had leukocytosis which improved with IV fluids, He had no evidence of infection. Patient also noted to have elevated troponin thought to be due to increased demand which trended down. TTE showed normal EF with no wall motion abnormalities. Also noted on echo is a small pericardial effusion, and diastolic dysfunction . Patient may also need a Holter monitor. He Will be referred to cardiology, he will also follow with his PCP outpatient. Physical Exam Const: COMMON NORMALS: no acute distress, patient oriented x3 and alert HENMT: COMMON NORMALS: normocephalic, atraumatic, external ears normal, Normal external nose present, moist oral mucous membranes and oropharynx normal HEAD & SCALP: normocephalic and atraumatic NOSE: Normal external nose present EXTERNAL EAR: Yes external ears normal Eye: COMMON NORMALS: Equal, round and reactive pupils present, EOMs intact bilaterally, conjunctivae normal and no scleral icterus CONJUNCTIVA: Yes conjunctivae normal PUPIL: Yes Equal, round and reactive pupils present Neck/C-Spine: COMMON NORMALS: full ROM, no lymphadenopathy and no JVD Chest: COMMONS NORMALS: normal inspection of the chest Resp: COMMON NORMALS: normal respiratory effort and clear to auscultation bilaterally AUSCULTATION: clear to auscultation bilaterally OTHER: No wheezes or crcakles Cardio: COMMON NORMALS: no JVD, regular rate, regular rhythm, S1 normal heart sound present and S2 normal heart sound present RATE: regular rate RHYTHM: regular rhythm HEART SOUNDS: S1 normal heart sound present and S2 normal heart sound present GI: COMMON NORMALS: Normal to inspection, nondistended, normoactive bowel sounds present, Soft to palpation and non-tender PALPATION: Yes Soft to palpation Extremity: COMMON NORMALS: normal to inspection and no pedal edema Neuro: COMMON NORMALS: patient oriented x3 SENSORIUM/ORIENTATION: Yes alert OTHER: No gross focal deficits Discharge Data Studies Completed and Pending Completed Studies During Hospitalization Category Date Time Status CT head wo con* [id number] Stat Cat Scan 10/05/23 20:45 Completed CTA chest [CT angio chest PE protcl [id number]] Stat Cat Scan 10/05/23 21:18 Completed XR chest 1V portable [id number] Stat Exams 10/05/23 20:40 Completed CV. echo complete* [id number] Routine Ultrasound 10/06/23 22:34 Completed Radiology Impressions Chest X-Ray 10/05/23 20:40 IMPRESSION: Minimal left basilar lung likely atelectasis. Head CT 10/05/23 20:45 IMPRESSION: No acute intracranial abnormality. Chronic microvascular ischemic changes. Chest CTA 10/05/23 21:18 IMPRESSION: 1. No evidence of PE or acute aortic abnormality. 2. Mild aneurysmal dilatation of the descending thoracic aorta. Laboratory Results WBC 11.08 10^3/uL (3.29-11.43) 10/06/23 02:23 RBC 4.54 10^6/uL (3.85-5.65) 10/06/23 02:23 Hgb 13.90 g/dL (11.27-16.99) 10/06/23 02:23 Hct 43.0 % (37-53) 10/06/23 02:23 MCV 94.7 fl (82-101) 10/06/23 02:23 MCH 30.6 pg (27-33) 10/06/23 02:23 MCHC 32.3 g/dL (30-55) 10/06/23 02:23 RDW 12.8 % (12.1-15.1) 10/06/23 02:23 Plt Count 196 10^3/cmm (157-399) 10/06/23 02:23 MPV 10.8 fL (7.4-10.4) H 10/06/23 02:23 Neut % (Auto) 82.9 % 10/06/23 02:23 Lymph % (Auto) 5.4 % 10/06/23 02:23 [place] % (Auto) 10.3 % 10/06/23 02:23 Eos % (Auto) 0.1 % 10/06/23 02:23 Baso % (Auto) 0.3 % 10/06/23 02:23 Neut # (Auto) 9.19 10^3/uL (1.8-7.7) H 10/06/23 02:23 Lymph # (Auto) 0.6 10^3/uL (0.8-4.8) L 10/06/23 02:23 [place] # (Auto) 1.1 10^3/uL (0.2-0.9) H 10/06/23 02:23 Eos # (Auto) 0.0 10^3/uL (0.0-0.8) 10/06/23 02:23 Baso # (Auto) 0.0 10^3/uL (0.0-0.1) 10/06/23 02:23 Nucleated RBC % (auto) 0 % 10/06/23 02:23 Nucleated RBCs # 0.0 /100WBC 10/06/23 02:23 D-Dimer 1.38 ug/mLFEU (0-0.59) H 10/05/23 20:25 Sodium 139 mmol/L (136-145) 10/06/23 02:23 Potassium 4.2 mmol/L (3.5-5.1) 10/06/23 02:23 Chloride 104 mmol/L (98-107) 10/06/23 02:23 Carbon Dioxide 26 mmol/L (22-29) 10/06/23 02:23 Anion Gap 13.2 (5-19) 10/06/23 02:23 BUN 22 mg/dL (8-23) 10/06/23 02:23 Creatinine 0.9 mg/dL (0.7-1.2) 10/06/23 02:23 GFR Calculation Not Reportable 10/06/23 02:23 Glucose 115 mg/dL (65-115) 10/06/23 02:23 Calculated Osmolality 292 mOsm/kg (285-295) 10/06/23 02:23 Calcium 8.2 mg/dL (8.5-10.5) L 10/06/23 02:23 Phosphorus 3.8 mg/dL (2.5-4.5) 10/06/23 02:23 Magnesium 1.8 mg/dL (1.7-2.3) 10/06/23 02:23 Total Bilirubin 1.6 mg/dL (0.15-1.2) H 10/05/23 20:25 AST 26 U/L (0-40) 10/05/23 20:25 ALT 19 U/L (0-41) 10/05/23 20:25 Alkaline Phosphatase 84 U/L (40-130) 10/05/23 20:25 Troponin T Baseline 25 ng/L (0-15) H 10/05/23 20:25 Troponin T 120 Minute 18.86 ng/L (0-15) H 10/05/23 22:05 Delta Troponin T -6.14 ABS# (0-10) L 10/05/23 22:05 Troponin T Hi Sens 6Hr 23.26 ng/L (0-15) H 10/06/23 02:23 Troponin T Hi Sens 6Hr Delta -1.74 ng/L (0-12) L 10/06/23 02:23 Total Protein 6.4 g/dL (6.6-8.7) L 10/05/23 20:25 Albumin 4.1 g/dL (3.5-5.2) 10/05/23 20:25 Globulin 2.3 g/dL (1.3-4.6) 10/05/23 20:25 TSH 5.16 uIU/mL (0.27-4.20) H 10/05/23 20:25 Urine Color Yellow (Yellow) 10/06/23 01:33 Urine Appearance Clear (CLEAR) 10/06/23 01:33 Urine pH 7 (5-7) 10/06/23 01:33 Ur Specific [place] 1.005 (1.005-1.030) 10/06/23 01:33 Urine Protein Trace (Negative) 10/06/23 01:33 Urine Glucose (UA) Norm (Normal) 10/06/23 01:33 Urine Ketones Negative (Negative) 10/06/23 01:33 Urine Blood Trace (Negative) H 10/06/23 01:33 Urine Nitrate Negative (Negative) 10/06/23 01:33 Urine Bilirubin Neg (Negative) 10/06/23 01:33 Urine Urobilinogen 4 mg/dL (Negative) H 10/06/23 01:33 Ur Leukocyte Esterase Negative (Negative) 10/06/23 01:33 Urine RBC 0-4 /hpf (0-2) H 10/06/23 01:33 Urine WBC None /hpf (0-5) 10/06/23 01:33 Ur Squamous Epith Cells None /hpf (0-5) 10/06/23 01:33 Amorphous Sediment 1+ /hpf 10/06/23 01:33 Urine Bacteria Trace /hpf (NONE) 10/06/23 01:33 Urine Mucus 1+ /hpf 10/06/23 01:33 Vitals Last Vital Signs Temp 97.6 F 10/06/23 16:00 Pulse 80 10/06/23 16:00 Resp 14 10/06/23 16:00 BP 143/84 10/06/23 16:00 Pulse Ox 96 10/06/23 16:00 O2 Del Method Room Air 10/06/23 16:00 O2 Flow Rate 2 10/05/23 22:18 Discharge Plan Discharge Patient Disposition: Home Condition: Stable Prescriptions: Continued cholecalciferol (vitamin D3) 25 mcg (1,000 unit) capsule 25 mcg PO DAILY 7 Days Qty: 7 0RF zinc acetate 50 mg (zinc) Capsule 50 mg PO DAILY levothyroxine 50 mcg tablet 50 mcg PO DAILY omeprazole 20 mg capsule,delayed release(DR/EC) 20 mg PO DAILY Discharge Orders: Discharge Order (Routine); Ordered 10/06/23 Ordered By: Venessa Stern Referrals: Tristen Moses M.D [Physician] - 1 week Caba,Chinmay Ryan, DO [Primary Care Provider] - 10/12/23 11:30 am Discharge Diet: Usual diet and As Directed Discharge Activity: Increase activity as tolerated Patient Instructions: Opioid Safety Discharge Attestations Time Spent in Discharge Care*: less than 30 min Quality Metrics Clinical Quality Measures [ No reported AMI, CVA or VTE this stay] Coding Level of Care Code Acute Code for [facility] Fwd Diagnoses Syncope R55 Syncope type: unspecified Leukocytosis D72.829 Hard of hearing H91.90 Myocardial injury I5A Thyroid disorder E07.9 Lower urinary tract symptoms (LUTS) R39.9 GERD (gastroesophageal reflux disease) K21.9 Right shoulder pain M25.511
--- NOTE | 2023-10-06 18:15 | PC.NURSE ---
Discussed discharge orders, follow up appointments with patient. Patient did not have any new mediations. Patient verbalized understanding
--- NOTE | 2023-10-06 22:34 | USCV_ITS ---
Alvaro Doroteo Age: 87 Gender: M : 1935 Exam Date: 10/06/2023 01:35 Ordering Phys: Ron Mera MD Technologist: MIA Exam Location: [facility] [place] Indication: syncope BP: 102 / 66 HR: 69 Rhythm: Sinus Technical Quality: Adequate MEASUREMENTS (Male / Female) Normal Values 2D ECHO LV Diastolic Diameter PLAX 3.9 cm 4.2 - 5.9 / 3.9 - 5.3 cm IVS Diastolic Thickness 1.5 cm 0.6 - 1.0 / 0.6 - 0.9 cm IVS Systolic Thickness 1.9 cm LVPW Diastolic Thickness 1.3 cm 0.6 - 1.0 / 0.6 - 0.9 cm LVPW Systolic Thickness 1.6 cm LVOT Diameter 2.0 cm LV Ejection Fraction 2D Teich 63.7 % LV Ejection Fraction MOD 2C 72.4 % LV Ejection Fraction 2C AL 73.1 % LA Diameter 3.3 cm LA Sys Volume AL 40.1 cm cubed Aorta at Sinotubular Diameter 3.3 cm IVC Diameter 2.1 cm M-MODE LA Ao Ratio MM 1.0 AV Cusp Separation MM 1.4 cm DOPPLER AV Peak Velocity 102.0 cm/s LVOT Peak Velocity 67.0 cm/s AV Area Cont Eq vti 2.5 cm squared AV Area Cont Eq pk 2.0 cm squared MV Peak Velocity 98.0 cm/s MV Area PHT 4.3 cm squared Mitral E to A Ratio 0.9 TV Peak Velocity 273.7 cm/s TR Peak Velocity 300.0 cm/s TR Peak Gradient 36.0 mmHg TV Peak E Velocity 40.0 cm/s Right Atrial Pressure 3.0 mmHg Pulmonary Artery Systolic Pressu 39.0 mmHg PV Peak Velocity 75.0 cm/s FINDINGS Left Ventricle Left ventricle is normal in size. LV systolic function is normal with EF of 55-60%. No regional wall motion abnormalities are seen. Grade 1 diastolic dysfunction. Right Ventricle Normal in size and function Right Atrium Normal in size Left Atrium Normal in size Mitral Valve Structurally normal mitral valve. Mild mitral regurgitation. Aortic Valve Structurally normal aortic valve. Trace aortic regurgitation. No significant stenosis. Tricuspid Valve Mild tricuspid regurgitation. Pulmonary artery systolic pressure is 35 to 40 mmHg. This is consistent with mild pulmonary hypertension Pulmonic Valve Not well visualized Pericardium Small pericardial effusion. Aorta Normal in size IVC Appears to be dilated CONCLUSIONS LV systolic function is normal with EF 55 to 60%. Grade 1 diastolic dysfunction. Mild mitral regurgitation Trace aortic regurgitation Mild tricuspid regurgitation. Mild pulmonary hypertension Small pericardial effusion. IVC appears to be dilated. No comparison studies are available Tristen Moses MD (Electronically Signed) Final Date: 06 October 2023 16:39 S
== END 2023-10-06 18:22 | disposition home or self-care (01) ==
LOC: ER 21:32 → MEDSURG 21:55
PROVIDERS: Admitting Provider Internal Medicine; Emergency Provider Emergency Medicine; PCP Internal Medicine; Visit Provider Student in an Organized Health Care Education/Training Program
DX: R55 Syncope and collapse (principal); D72.829 Elevated white blood cell count, unspecified; H91.90 Unspecified hearing loss, unspecified ear; I5A Non-ischemic myocardial injury (non-traumatic); E07.9 Disorder of thyroid, unspecified; R39.9 Unspecified symptoms and signs involving the genitourinary system; K21.9 Gastro-esophageal reflux disease without esophagitis; M25.511 Pain in right shoulder; Z87.891 Personal history of nicotine dependence; Z86.16 Personal history of COVID-19
CPT/HCPCS: 12345; 36415; 70450; 71045; 71275; 80048; 80053; 81001; 83735; 84100; 84443; 84484; 85025; 85378; 93005; 93306; 96361; 96372; 96374; 97161; 97530; 99285; G0378; J1650; J1885; J7030; Q9967